=== PATIENT | male | born 1995 ===

== ENCOUNTER 2019-03-21 17:46 | Emergency (ER) | payer OTHER ==
--- NOTE | 2019-03-21 19:03 | UC ---
Skin Complaint HPI - HPI Summary HPI Summary: 23 y/o male presents to the urgent care c/o an itchy rash in the left lateral side pelvis, gluteus and thigh for the past 3 days. Pt has not applied anything to alleviate symptoms. He has been out in the park and hiking. Pt denies change in medication, detergents, body lotions, eating something different. Pt denies fever, throat tightening, SOB, cough, hoarseness, chest pain, abdominal pain, N/V/d. - History of Current Complaint Chief Complaint: UCRash Time Seen by Provider: 03/21/19 19:01 Stated Complaint: SKIN COMPLAINT Hx Obtained From: Patient Onset/Duration: Gradual Onset, Lasting Days - 2 days, Still Present, Worse Since - today w/ alot of itchiness Skin Exposure Onset/Duration: Days Ago - 2 days ago Timing: Constant Onset Severity: Mild Current Severity: Mild Pain Intensity: 0 Pain Scale Used: 0-10 Numeric Location: Discrete - lateral side of the left pelvis and left gluteus and RT forearm Character: Pruritus, Hives, Redness Aggravating Factor(s): Touch Alleviating Factor(s): Nothing Associated Signs & Symptoms: Positive: Rash - lateral side of left pelvis and left gluteus and Rt forearm. Negative: Fever, Chills, Hoarseness, Throat Tightening, Drainage, Tenderness Related History: Possible Reaction to: Environmental Exposure - Allergy/Home Medications Allergies/Adverse Reactions: Allergies Allergy/AdvReac Type Severity Reaction Status Date / Time Cephalosporins Allergy Dizziness Verified 03/21/19 18:00 Penicillins Allergy Dizziness Verified 03/21/19 17:58 PMH/Surg Hx/FS Hx/Imm Hx Previously Healthy: Yes Respiratory History: Asthma - as a child - Surgical History Surgical History: None - Family History Known Family History: Positive: Diabetes - Social History Occupation: Student Lives: With Family Alcohol Use: Occasionally Substance Use Type: None Smoking Status (MU): Never Smoked Tobacco Review of Systems All Other Systems Reviewed And Are Negative: Yes Constitutional: Positive: Negative Skin: Positive: Rash - lateral side of the left pelvis and left gluteus and Rt forearm itchy rash Eyes: Positive: Negative ENT: Positive: Negative Respiratory: Positive: Negative Cardiovascular: Positive: Negative Gastrointestinal: Positive: Negative Genitourinary: Positive: Negative Motor: Positive: Negative Neurovascular: Positive: Negative Musculoskeletal: Positive: Negative Neurological: Positive: Negative Psychological: Positive: Negative Is Patient Immunocompromised?: No Physical Exam - Summary Physical Exam Summary: Vital Signs Reviewed: Yes General: well appearing, well nourished male in no acute apparent pain distress , sitting comfortably on examining table Eye Exam: Normal Eyes: Positive: Conjunctiva Clear - PERRLA< EOMI, fundi grossly normal ENT: Positive: Normal ENT inspection, Hearing grossly normal, Pharynx normal, TMs normal Neck: Positive: Supple, Nontender, No Lymphadenopathy Respiratory: Positive: Chest non-tender, Lungs clear, Normal breath sounds, No respiratory distress Cardiovascular: Positive: RRR, No Murmur, Pulses Normal, Brisk Capillary Refill Abdomen Description: Positive: Nontender, No Organomegaly, Soft. Negative: CVA Tenderness (R), CVA Tenderness (L) Bowel Sounds: Positive: Present Musculoskeletal: Positive: Strength Intact, ROM Intact, No Edema Neurological: Positive: Alert, Muscle Tone Normal Psychological Exam: Normal Skin: Positive: lateral side of the left pelvis and mid gluteus and RT forearm w/ scattered erythematous papules and hives w/ mild signs of excoriation, no drainage observed, non tender to palpation no warm to palpation Triage Information Reviewed: Yes Vital Signs: Initial Vital Signs Temp 99.2 F 03/21/19 17:55 Pulse 102 03/21/19 17:55 Resp 18 03/21/19 17:55 BP 133/83 03/21/19 17:55 Pulse Ox 99 03/21/19 17:55 Course/Dx - Course Course Of Treatment: 23 y/o male presents to the urgent care c/o an itchy rash in the left lateral side pelvis, gluteus and thigh for the past 3 days. Pt has not applied anything to alleviate symptoms. He has been out in the park and hiking. Pt denies change in medication, detergents, body lotions, eating something different. Pt denies fever, throat tightening, SOB, cough, hoarseness, chest pain, abdominal pain, N/V/d. Hx obtained. Pt's rash is unspecified , probably contact dermatitis. PT Rx Benadryl PO for pruritus and triamcinolone topical cream 1% as directed below. Pt advised if not improvement or worsening of symptoms to return to the clinic or f/u with PCP for further treatment.PT understood and agreed with D/C instructions. - Differential Diagnoses - Skin Complaint Differential Diagnoses: Abscess, Cellulitis, Contact Dermatitis, Drug Rash, Local Allergic Reaction, MRSA, Poison Freda, Urticaria, Other - subungal hematoma - Diagnoses Provider Diagnosis: Contact dermatitis Discharge ED - Sign-Out/Discharge Documenting (check all that apply): Patient Departure - D/C home All imaging exams completed and their final reports reviewed: No Studies - Discharge Plan Condition: Stable Disposition: HOME Prescriptions: diPHENhydraMINE PO* [Benadryl PO 25 MG TAB*] 25 mg PO TID PRN #30 tab PRN Reason: pruritus Triamcinolone 0.1% CREAM(NF) [Kenalog Cream 0.1%(NF)] 1 applic TOPICAL BID #1 tube Patient Education Materials: Contact Dermatitis (ED) Forms: *School Release Referrals: [facility] [Outside] - 3 Days Natalie Kauffman [Medical Doctor] - If Needed Additional Instructions: 1-Please apply Triamcinolone topical cream medication as directed over affected areas . Avoid sun exposure 2-Take Benadryl PO as directed to alleviate itchiness. 3-If symptoms do not improve or worsen please f/u with your PCP or Plant Tax[employer] Dr Kauffman for further evaluation and treatment. - Billing Disposition and Condition Condition: STABLE Disposition: Home - Attestation Statements Provider Attestation: Per institutional requirements, I have reviewed the chart, however, I was not consulted specifically or made aware of this patient by the midlevel provider. I did not personally evaluate, interact with , or disposition this patient.
== END 2019-03-21 20:27 | disposition home or self-care (01) ==
LOC: UCEAST 17:46
DX: L25.9 Unspecified contact dermatitis, unspecified cause (principal); Z88.0 Allergy status to penicillin
CPT/HCPCS: 99202; G0463